=== PATIENT | male | born 1995 | race Caucasian/White ===

== ENCOUNTER 2017-07-19 03:48 | Emergency (ER) | payer MEDICAID ==
[~2017-07-19] VITALS: Ht 167.6 cm; Wt 113.5 kg
[2017-07-19 04:05] VITALS: Ht 167.6 cm; Wt 113.5 kg
[2017-07-19] MEDS ORDERED: HYDROCODONE/APAP (10/325) TAB PO ONE (04:30)
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
--- NOTE | 2017-07-19 05:46 | RADRPT ---
PROCEDURE: XR Knee. CLINICAL INDICATION: Right knee pain TECHNIQUE: 4 views of the right knee were obtained. The images reviewed on a PACS workstation. COMPARISON: None. FINDINGS: The patella is displaced laterally. There is a large bony fragment of the medial aspect of the saeed la seen on the sunrise view which appears well corticated and may be due to prior trauma. There is a lso a small well corticated bony density along the lateral margin of the patella. There is a large h emarthrosis with a fat - fluid level seen. No other fracture is seen. IMPRESSION: Large hemarthrosis with laterally displaced patella and patellar bony fragments which may be old. Co rrelate clinically for history of remote trauma. There is not a clearly defined acute fracture. Pres umed underlying retinacular injury. MRI or CT could be useful for further evaluation. RPTAT: [facility] Physician Josue Date Time Electronically viewed and signed by Ariana Aguayo Physician on 07/19/2017 05:45 LE/
[2017-07-19] MEDS ORDERED: IBUP-1542 PO (05:54)
[2017-07-19] MEDS ORDERED: HYDR-902 PO (05:54)
== END 2017-07-19 06:05 | disposition home or self-care (01) ==
LOC: FTE 03:48
DX: S83.014A Lateral dislocation of right patella, initial encounter (principal); M25.061 Hemarthrosis, right knee; V89.2XXA Person injured in unspecified motor-vehicle accident, traffic, initial encounter
CPT/HCPCS: 29505; 73562; Z7502; Z7610